=== PATIENT | female | born 1980 | race Caucasian/White ===

== ENCOUNTER 2017-11-02 14:32 | Emergency (ER) | payer OTHER ==
[~2017-11-02] VITALS: Ht 167.6 cm; Wt 68.0 kg
[~2017-11-02 14:32] MED LIST: CYCL10 PO; Colace100 MG PO; Norco 5-325 Ta1 EACH PO; ONDA4 PO; OXYACE7.5T PO; Omeprazole20 M1 PO; PRED20 PO; PROM25 PO; Ultram50 MG PO; Zofran Odt4 MG SL
[2017-11-02 16:35] LABS: Influenza A Negative (NEGATIVE); Influenza B Negative (NEGATIVE)
[2017-11-02 16:52] LABS: Anion Gap 7 mmol/L (6-16); Blood Urea Nitrogen 11 mg/dL (8-24); Bun/Creatinine Ratio 14.4 (12.0-20.0); CO2, Blood 24 mmol/L (21-32); Calcium, Blood 8.8 mg/dL (8.5-10.1); Chloride, Blood 105 mmol/L (98-108); Creatinine, Blood 0.77 mg/dL (0.40-1.00); Glomerular Filtration Rate >60 (60-); Glucose, Blood 92 mg/dL (70-99); Potassium, Blood 4.4 mmol/L (3.5-5.5); Sodium, Blood 136 mmol/L (136-145)
[2017-11-02] MEDS ORDERED: Robaxin500 MG PO (17:57)
[2017-11-02] MEDS ORDERED: IBUP800 PO (17:57)
== END 2017-11-02 18:11 | disposition home or self-care (01) ==
LOC: ER 14:32
PROVIDERS: Physician Assistant
DX: R07.1 Chest pain on breathing (principal); F17.290 Nicotine dependence, other tobacco product, uncomplicated
CPT/HCPCS: 36415; 71020; 71260; 80048; 85379; 87804; 93005; 93010; 96374; 99284; J1885; Q9967

== ENCOUNTER 2017-12-03 01:46 | Emergency (ER) | payer OTHER ==
[~2017-12-03] VITALS: Ht 167.6 cm; Wt 67.6 kg
[~2017-12-03 01:46] MED LIST changes: +IBUP800 PO; +Robaxin500 MG PO
[2017-12-03] MEDS ORDERED: Cyclobenzaprine5 MG PO (04:25)
== END 2017-12-03 04:45 | disposition home or self-care (01) ==
LOC: ER 01:46
DX: M62.830 Muscle spasm of back (principal); M70.99 Unspecified soft tissue disorder related to use, overuse and pressure multiple sites; Z79.899 Other long term (current) drug therapy; Z87.891 Personal history of nicotine dependence
CPT/HCPCS: 96372; 99283; J1885

== ENCOUNTER 2018-11-18 02:41 | Emergency (ER) | payer OTHER ==
[~2018-11-18] VITALS: Ht 162.6 cm; Wt 63.5 kg
[~2018-11-18 02:41] MED LIST changes: +Cyclobenzaprine5 MG PO
== END 2018-11-18 03:14 | disposition home or self-care (01) ==
LOC: ER 02:41
DX: S09.90XA Unspecified injury of head, initial encounter (principal); W22.8XXA Striking against or struck by other objects, initial encounter; Y93.E9 Activity, other interior property and clothing maintenance; Y92.39 Other specified sports and athletic area as the place of occurrence of the external cause; Y99.0 Civilian activity done for income or pay
CPT/HCPCS: 99283; J1885

== ENCOUNTER 2019-12-10 01:30 | Emergency (ER) | payer OTHER ==
[~2019-12-10] VITALS: Ht 167.6 cm; Wt 70.3 kg
[2019-12-10] MEDS ORDERED: IBUP600 PO (02:25)
== END 2019-12-10 02:30 | disposition home or self-care (01) ==
LOC: ER 01:30
DX: S63.502A Unspecified sprain of left wrist, initial encounter (principal); Z87.891 Personal history of nicotine dependence; X58.XXXA Exposure to other specified factors, initial encounter
CPT/HCPCS: 29125; 73110; 99283-25; A9270-GY

== ENCOUNTER 2022-08-17 12:33 | Emergency (ER) | payer OTHER ==
[~2022-08-17] VITALS: Ht 167.6 cm; Wt 65.3 kg
[~2022-08-17 12:33] MED LIST changes: +IBUP600 PO
[2022-08-17] MEDS ORDERED: Norco 5-325 Ta1 EACH PO (13:09)
[2022-08-17] MEDS ORDERED: METPRE4DP PO (13:09)
[2022-08-17] MEDS ORDERED: CYCL10 PO (13:33)
== END 2022-08-17 13:30 | disposition home or self-care (01) ==
LOC: ER 12:33
DX: M75.01 Adhesive capsulitis of right shoulder (principal); Z87.891 Personal history of nicotine dependence
CPT/HCPCS: 99283; A9270

== ENCOUNTER 2022-08-28 20:03 | Emergency (ER) | payer OTHER ==
[~2022-08-28] VITALS: Ht 167.6 cm; Wt 65.3 kg
[~2022-08-28 20:03] MED LIST changes: +METPRE4DP PO
[2022-08-28] MEDS ORDERED: HYDR1TAB94 PO (21:58)
[2022-08-28] MEDS ORDERED: ACET500 PO (21:58)
[2022-08-28] MEDS ORDERED: LIDO700A20 TOP (21:58)
== END 2022-08-28 22:12 | disposition home or self-care (01) ==
LOC: ER 20:03
DX: M25.511 Pain in right shoulder (principal); Z87.891 Personal history of nicotine dependence
CPT/HCPCS: J1885

== ENCOUNTER 2024-08-21 14:45 | Emergency (ER) | payer OTHER ==
[~2024-08-21] VITALS: Ht 167.6 cm; Wt 63.5 kg
[~2024-08-21 14:45] MED LIST changes: +ACET500 PO; +HYDR1TAB94 PO; +LIDO700A20 TOP
[2024-08-21 15:04] VITALS: BP 116/85
[2024-08-21] MEDS ORDERED: LISDEXAMFETAMIN50 MG PO (15:07)
[2024-08-21] MEDS ORDERED: BENADRYL25 MG PO (16:15)
[2024-08-21] MEDS ORDERED: DiphenhydrAMINE HCL 25 MG Cap PO ONE (16:15)
== END 2024-08-21 16:28 | disposition home or self-care (01) ==
LOC: ER 14:45
DX: R22.0 Localized swelling, mass and lump, head (principal); F17.290 Nicotine dependence, other tobacco product, uncomplicated
CPT/HCPCS: 99283; A9270

== ENCOUNTER → 2025-02-22 | Outpatient (CLI) | payer OTHER ==
[~2025-02-22] MED LIST changes: +BENADRYL25 MG PO; +LISDEXAMFETAMIN50 MG PO
[2025-02-22 17:23] LABS: Source, Urine Clean Catch
[2025-02-22 19:50] LABS: Appearance, Urine Clear (Clear); Bilirubin, Urine Neg (Neg); Blood, Urine Neg (Neg); Glucose Qualitative, Urine Neg (Neg); Ketones, Urine Neg (Neg); Leukocyte Esterase, Urine 3+ (Neg); Nitrite, Urine Neg (Neg); Protein, Urine Neg (Neg); Urobilinogen, Urine NORM (Normal)
[2025-02-22 20:08] LABS: Color, Urine Pale Yellow (P-Yellow)
[2025-02-22 20:09] LABS: Bacteria Few /hpf; Red Blood Cells, Urine 0-2 /hpf (0-2); Squamous Epithelial Cells Few /hpf (Few)
== END ==
LOC: LAB SHORT 17:15 → LAB 17:15
PROVIDERS: Obstetrics & Gynecology
DX: R30.0 Dysuria (principal)
CPT/HCPCS: 81001; 87077; 87086; 87186

== ENCOUNTER → 2025-02-28 | Outpatient (CLI) | payer OTHER ==
[2025-03-01 08:28] LABS: Stool Occult Bld Immuno 1 Negative (NEGATIVE)
[2025-03-04 09:09] LABS: OVA AND PARASITE,FECAL INTERP Negative (Negative)
== END ==
LOC: LAB 14:15 → LAB SHORT 14:15
PROVIDERS: Family Medicine
DX: D50.9 Iron deficiency anemia, unspecified (principal)
CPT/HCPCS: 82274; 87177; 87209

== ENCOUNTER → 2025-03-10 | Outpatient (CLI) | payer OTHER ==
[2025-03-10 17:19] LABS: Source, Urine Clean Catch
[2025-03-10 18:38] LABS: Appearance, Urine Clear (Clear); Bilirubin, Urine Neg (Neg); Blood, Urine Neg (Neg); Glucose Qualitative, Urine Neg (Neg); Ketones, Urine Neg (Neg); Leukocyte Esterase, Urine 1+ (Neg); Nitrite, Urine Neg (Neg); Protein, Urine Neg (Neg); Urobilinogen, Urine NORM (Normal); pH, Urine 6.5 (5.0-8.0)
[2025-03-10 19:16] LABS: Color, Urine Pale Yellow (P-Yellow)
[2025-03-10 19:17] LABS: Bacteria Mod /hpf; Red Blood Cells, Urine 0-2 /hpf (0-2); Squamous Epithelial Cells Few /hpf (Few)
[2025-03-10 19:32] LABS: Candida Group, PCR NOT DETECTED (NOT DETECT); Candida glabrata-krusei, PCR NOT DETECTED (NOT DETECT)
[2025-03-11 00:03] LABS: Bacterial Vaginosis PCR Positive (NEGATIVE)
== END ==
LOC: LAB SHORT 17:15 → LAB 17:15
PROVIDERS: Obstetrics & Gynecology
DX: R39.9 Unspecified symptoms and signs involving the genitourinary system (principal)
CPT/HCPCS: 81001; 81515; 87086